=== PATIENT | male | born 1955 ===

== ENCOUNTER 2022-01-08 10:46 | Emergency (ER) | payer MEDICARE, OTHER ==
[~2022-01-08] VITALS: Ht 165.1 cm; Wt 88.5 kg
[2022-01-08 10:58] VITALS: BP 150/77
--- NOTE | 2022-01-08 11:37 | PHYS DOC ---
Past Medical History Past Medical History: Hypertension Additional Past Medical Histor: GOUT Past Surgical History: No Surgical History General Adult EDM: Chief Complaint: RIB PAIN HPI: HPI: Patient is a 66-year-old male that presents today with right rib pain. He states approximately 1 week ago he fell into a chair on his right chest wall area and since that time he has had increased pain in the right rib area. He says he has tried Biofreeze and other topical type muscle relief medications and they have not been helpful. Patient denies shortness of breath, or fever. Review of Systems: Review of Systems: Constitutional: Denies fever or chills. [] Eyes: Denies change in visual acuity. [] HENT: Denies nasal congestion or sore throat. [] Respiratory: Right rib area Cardiovascular: Denies chest pain or edema. [] GI: Denies abdominal pain, nausea, vomiting, bloody stools or diarrhea. [] : Denies dysuria. [] Musculoskeletal: Denies back pain or joint pain. [] Integument: Denies rash. [] Neurologic: Denies headache, focal weakness or sensory changes. [] Endocrine: Denies polyuria or polydipsia. [] Lymphatic: Denies swollen glands. [] Psychiatric: Denies depression or anxiety. [] Heart Score: C/O Chest Pain: No Risk Factors: Risk Factors: DM, Current or recent (<one month) smoker, HTN, HLP, family history of CAD, obesity. Risk Scores: Score 0 - 3: 2.5% MACE over next 6 weeks - Discharge Home Score 4 - 6: 20.3% MACE over next 6 weeks - Admit for Clinical Observation Score 7 - 10: 72.7% MACE over next 6 weeks - Early Invasive Strategies Allergies: Allergies: Allergies Coded Allergies Type Severity Reaction Last Updated Verified No Known Drug Allergies 01/08/22 No Physical Exam: PE: Constitutional: Well developed, well nourished, no acute distress, non-toxic appearance. [] HENT: Normocephalic, atraumatic, bilateral external ears normal, oropharynx moist, no oral exudates, nose normal. [] Eyes: PERRLA, EOMI, conjunctiva normal, no discharge. [] Neck: Normal range of motion, no tenderness, supple, no stridor. [] Cardiovascular:Heart rate regular rhythm, no murmur [] Lungs & Thorax: Right chest wall tenderness noted with palpation, no contusions or ecchymosis, breath sounds on the left side are clear to auscultation, diminished breath sounds were noted on the right chest area. No increased work of breathing noted Abdomen: Bowel sounds normal, soft, no tenderness, no masses, no pulsatile masses. [] Skin: Warm, dry, no erythema, no rash. [] Back: No tenderness, no CVA tenderness. [] Extremities: No tenderness, no cyanosis, no clubbing, ROM intact, no edema. [] Neurologic: Alert and oriented X 3, normal motor function, normal sensory func tion, no focal deficits noted. [] Psychologic: Affect normal, judgement normal, mood normal. [] Current Patient Data: Vital Signs: Vital Signs Date Time Temp Pulse Resp B/P (MAP) Pulse Ox O2 Delivery O2 Flow Rate FiO2 01/08/22 10:58 97.6 77 18 150/77 (101) 95 Room Air 97.6 EKG: EKG: [] Radiology/Procedures: Radiology/Procedures: REASON: fall with right rib pain PROCEDURE: RIBS RIGHT AND PA CHEST XR RIBS MIN 3 VIEWS RT W/PA CHEST History: Fall with right rib pain. Comparison: None. Technique: PA chest with 3 views of the right ribs. Findings: The lungs are adequately inflated. There are mild linear opacities in the left lung is without atelectasis or scarring. No pleural effusion or pneumothorax. Cardiomediastinal silhouette and pulmonary vasculature are within normal limits. There are nondisplaced fractures of the right anterolateral fifth and sixth ribs. Minimally displaced fracture at the anterior right seventh rib. Degenerative changes of the thoracic spine. Soft tissues are unremarkable. Impression: 1. Minimally displaced fracture of the anterior right seventh rib and nondisplaced fractures of the right anterolateral fifth and sixth ribs. No pneumothorax or effusion. Electronically signed by: Chente Ho MD (01/08/2022 12:11 PM) [id number][] Course & Med Decision Making: Course & Med Decision Making Pertinent Labs and Imaging studies reviewed. (See chart for details) [1220 reviewed radiological results with patient did inform him he had 3 notable rib fractures, patient will be sent home to be treated on outpatient basis with incentive spirometer and pain medication, patient states his primary care physician is Dr. Wolfe. Informed patient to follow-up with Dr. Martinez early next week, use incentive spirometer 5-6 times daily and to take pain medications as needed. Patient was given strict return precautions to return here to the emergency department if he has increased shortness of breath, increased chest pain, inability to catch his breath, or development of a fever. Dragon Disclaimer: Dragon Disclaimer: This electronic medical record was generated, in whole or in part, using a voice recognition dictation system. Departure Departure Impression: Primary Impression: Ribs, multiple fractures Qualified Codes: S22.41XA - Multiple fractures of ribs, right side, initial encounter for closed fracture Disposition: HOME / SELF CARE / HOMELESS Condition: STABLE Referrals: RED ELDRIDGE MD (PCP) Patient Instructions: Incentive Spirometer, Rib Fracture Additional Instructions: Incentive spirometer 5-6 times daily over the next 5 to 7 days Tramadol take 1 tablet every 6 hours as needed for severe pain, use with caution may cause drowsiness or constipation [id number] Motrin or Tylenol as labeled directed for mild to moderate pain Follow-up with your primary care physician in the next 5 to 7 days for further management of rib fractures Return to the emergency department for increased work of breathing, increased chest pain, inability to take deep breaths, or development of a fever. Scripts Tramadol Hcl (TRAMADOL HCL) 50 Mg Tablet 50 MG PO Q6HRS PRN for PAIN, #14 TAB Prov: SANDRA BOLAÑOS APRN 01/08/22 SANDRA BOLAÑOS APRN Jan 08, 2022 11:37
--- NOTE | 2022-01-08 12:13 | RAD ---
XR RIBS MIN 3 VIEWS RT W/PA CHEST History: Fall with right rib pain. Comparison: None. Technique: PA chest with 3 views of the right ribs. Findings: The lungs are adequately inflated. There are mild linear opacities in the left lung is without atelec tasis or scarring. No pleural effusion or pneumothorax. Cardiomediastinal silhouette and pulmonary va sculature are within normal limits. There are nondisplaced fractures of the right anterolateral fifth and sixth ribs. Minimally displaced fracture at the anterior right seventh rib. Degenerative changes of the thoracic spine. Soft tissues are unremarkable. Impression: 1. Minimally displaced fracture of the anterior right seventh rib and nondisplaced fractures of the right anterolateral fifth and sixth ribs. No pneumothorax or effusion. Electronically signed by: Chente Ho MD (01/08/2022 12:11 PM) [id number]
[2022-01-08] MEDS ORDERED: TRAM50TA PO (12:27)
== END 2022-01-08 12:49 | disposition home or self-care (01) ==
LOC: ER 10:46
DX: S22.41XA Multiple fractures of ribs, right side, initial encounter for closed fracture (principal); I10 Essential (primary) hypertension; M10.9 Gout, unspecified; W07.XXXA Fall from chair, initial encounter; Y93.89 Activity, other specified; Y92.89 Other specified places as the place of occurrence of the external cause; Y99.8 Other external cause status
CPT/HCPCS: 71101; 99283